=== PATIENT | female | born 1990 | race African-American/Black ===

== ENCOUNTER 2019-03-31 16:18 | Emergency (ER) | payer OTHER ==
[2019-03-31] MEDS ORDERED: ASPIRIN 81 MG TABLET, CHEWABLE PO ONE ×2 (17:13→19:30)
--- NOTE | 2019-03-31 17:19 | ER Document Report ---
ED Medical Screen (RME) - General Chief Complaint: Chest Pain Stated Complaint: CHEST PAIN,ELEVATED BLOOD PRESSURE Time Seen by Provider: 03/31/19 17:11 Primary Care Provider: DERICK ROSALES MD [Primary Care Provider] - Follow up as needed Mode of Arrival: Ambulatory Information source: Patient Notes: 28-year-old female presented to ED for complaint of chest pain since 445 this morning that is been intermittent all day. She went to the primary care after school to get this checked out and they did not have room to see her so they sent her to an urgent care the urgent care took her blood pressure and told to go to the emergency room while in the emergency room she stated that she been having chest pain since 445 this morning. She states the chest pain is better and it has been intermittent all day. She states the pain has not radiated at all during the day. The pain is just to the left of the center of her chest. 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 I have greeted and performed a rapid initial assessment of this patient. A comprehensive ED assessment and evaluation of the patient, analysis of test results and completion of medical decision making process will be conducted by an additional ED providers. - Related Data Allergies/Adverse Reactions: No Known Allergies Allergy (Verified 03/31/19 17:12) Physical Exam - Vital signs Vitals: Temp Pulse Resp BP Pulse Ox 98.5 F 84 18 146/102 H 99 03/31/19 17:07 03/31/19 17:07 03/31/19 17:07 03/31/19 17:07 03/31/19 17:07 Course - Vital Signs Vital signs: Temp Pulse Resp BP Pulse Ox 98.5 F 84 18 146/102 H 99 03/31/19 17:07 03/31/19 17:07 03/31/19 17:07 03/31/19 17:07 03/31/19 17:07 Doctor's Discharge - Discharge Referrals: DERICK ROSALES MD [Primary Care Provider] - Follow up as needed
--- NOTE | 2019-03-31 17:40 | RADIOLOGY REPORT (SQ) ---
EXAM DESCRIPTION: CHEST 2 VIEWS COMPLETED DATE/TIME: 03/31/2019 5:33 pm REASON FOR STUDY: Chest pain COMPARISON: None. EXAM PARAMETERS: NUMBER OF VIEWS: two views TECHNIQUE: Digital Frontal and Lateral radiographic views of the chest acquired. RADIATION DOSE: NA LIMITATIONS: none FINDINGS: LUNGS AND PLEURA: No opacities, masses or pneumothorax. No pleural effusion. MEDIASTINUM AND HILAR STRUCTURES: No masses or contour abnormalities. HEART AND VASCULAR STRUCTURES: Heart normal size. No evidence for failure. BONES: No acute findings. HARDWARE: None in the chest. OTHER: No other significant finding. IMPRESSION: NO ACUTE RADIOGRAPHIC FINDING IN THE CHEST. TECHNICAL DOCUMENTATION: JOB ID: [id number] [employer]- All Rights Reserved Reading location - IP/workstation name: [email or web address]
[2019-03-31 19:22] LABS: ABSOLUTE BASOPHILS # (AUTO) 0.1 10^3/uL (0.0-0.2); ABSOLUTE EOSINOPHILS # (AUTO) 0.1 10^3/uL (0.0-0.6); ABSOLUTE LYMPHOCYTES (AUTO) 2.2 10^3/uL (0.5-4.7); ABSOLUTE MONOCYTES (AUTO) 1.1 10^3/uL (0.1-1.4); ABSOLUTE NEUT (AUTO) 7.1 10^3/uL (1.7-8.2); BASOPHILS % (AUTO) 0.6 % (0-2); EOSINOPHILS % (AUTO) 0.8 % (0-6); HEMATOCRIT 39.5 % (36.0-47.0); HEMOGLOBIN 13.1 g/dL (12.0-15.5); LYMPHOCYTES % (AUTO) 20.9 % (13-45); MEAN CORPUSCULAR HGB CONC 33.3 g/dL (32.0-36.0); MEAN CORPUSCULAR VOLUME 87 fl (80-97); MONOCYTES % (AUTO) 10.2 % (3-13); PLATELET COUNT 402 10^3/uL (150-450); RED BLOOD COUNT 4.52 10^6/uL (3.72-5.28); RED CELL DISTRIBUTION WIDTH 13.3 % (11.5-14.0); SEGMENTED NEUTROPHILS % (AUTO) 67.5 % (42-78); TOTAL CELLS COUNTED % (AUTO) 100 %; WHITE BLOOD COUNT 10.6 10^3/uL (4.0-10.5)
[2019-03-31 19:41] LABS: ALBUMIN 4.5 g/dL (3.5-5.0); ALKALINE PHOSPHATASE 70 U/L (38-126); ANION GAP 10 (5-19); ASPARTATE AMINO TRANSFERASE 27 U/L (14-36); BILIRUBIN,TOTAL 0.4 mg/dL (0.2-1.3); BLOOD UREA NITROGEN 12 mg/dL (7-20); CALCIUM 9.6 mg/dL (8.4-10.2); CARBON DIOXIDE 28 mmol/L (22-30); CHLORIDE 98 mmol/L (98-107); GLUCOSE 87 mg/dL (75-110); POTASSIUM 3.7 mmol/L (3.6-5.0); TOTAL PROTEIN 8.2 g/dL (6.3-8.2)
--- NOTE | 2019-03-31 21:10 | ER Document Report ---
ED General - General Chief Complaint: Chest Pain Stated Complaint: CHEST PAIN,ELEVATED BLOOD PRESSURE Time Seen by Provider: 03/31/19 17:11 Mode of Arrival: Ambulatory Notes: Patient is a 28-year-old female that comes emergency department for chief complaint of chest pain and elevated blood pressure reading. She states she woke up at about 5 AM this morning with a mild discomfort in the left side of her chest, she points to her left sternal border between the third and fourth rib spaces. She states that intermittently she felt discomfort all day until this afternoon and she has not felt anything since about 3 PM. Patient has had a mild cough for the past 3 days. She denies shortness of breath, dizziness, na usea or vomiting. She states she is seen by urgent care and she was told that her blood pressure was elevated in the 150s so she was sent to the emergency department. Patient states she is medicated for hypertension, she denies smoking, alcohol, recreational drugs. She denies any other diagnosed medical history. LMP 2 weeks ago. She denies any family history of cardiac disease, family at bedside and denies any history especially early cardiac disease. - Related Data Allergies/Adverse Reactions: No Known Allergies Allergy (Verified 03/31/19 17:12) Past Medical History - General Information source: Patient - Social History Smoking Status: Never Smoker Frequency of alcohol use: Rare Lives with: Family Family History: Reviewed & Not Pertinent Patient has suicidal ideation: No Patient has homicidal ideation: No Surgical Hx: Negative - Immunizations Immunizations up to date: Yes Hx Diphtheria, Pertussis, Tetanus Vaccination: Yes Review of Systems - Review of Systems Constitutional: No symptoms reported EENT: No symptoms reported Cardiovascular: See HPI Respiratory: See HPI Gastrointestinal: No symptoms reported Genitourinary: No symptoms reported Female Genitourinary: No symptoms reported Musculoskeletal: See HPI Skin: No symptoms reported Hematologic/Lymphatic: No symptoms reported Neurological/Psychological: No symptoms reported Physical Exam - Vital signs Vitals: Temp Pulse Resp BP Pulse Ox 98.5 F 84 18 146/102 H 99 03/31/19 17:07 03/31/19 17:07 03/31/19 17:07 03/31/19 17:07 03/31/19 17:07 - Notes Notes: GENERAL: Alert, interacts well. No acute distress. HEAD: Normocephalic, atraumatic. EYES: Pupils equal, round, and reactive to light. Extraocular movements intact. ENT: Oral mucosa moist, tongue midline. Oropharynx unremarkable. Airway patent. LUNGS: Clear to auscultation bilaterally, no wheezes, rales, or rhonchi. No respiratory distress. HEART: Regular rate and rhythm. No murmur ABDOMEN: Soft, non-tender. Non-distended. Bowel sounds present in all 4 quadrants. GENITOURINARY: Deferred EXTREMITIES: Moves all 4 extremities spontaneously. No edema, normal radial and dorsalis pedis pulses bilaterally. No cyanosis. BACK: no cervical, thoracic, lumbar midline tenderness. No saddle anesthesia, normal distal neurovascular exam. Moves all extremities in full range of motion. NEUROLOGICAL: Alert and oriented x3. Normal speech. Cranial nerves II through XII grossly intact. PSYCH: Normal affect, normal mood. SKIN: Warm, dry, normal turgor. No rashes or lesions noted. Course - Re-evaluation Re-evalutation: Patient has not had chest pain for hours. Symptoms atypical and very spe cifically between the ribs and the left anterior chest wall per patient's indication. No fever, no IV drug abuse, no recreational drugs reported, no family history, no risk factors reported. In addition to this patient has been recovering from a mild cough. Work-up from triage reviewed including chest x- ray, EKG, CBC, chemistry, troponin. These are all normal. I recommended a test for the patient but she declined, states she wants to leave, assures me that she is not . Patient has a heart score of 0. Very low suspicion of any acute intrathoracic etiology. No lower extremity swelling, tachycardia, shortness of breath, or current symptoms. Patient will be discharged with recommendations, I did discuss her blood pressure, discussed primary care follow-up and return precautions. Patient states understanding and agreement. Stable at time of discharge. - Vital Signs Vital signs: Temp Pulse Resp BP Pulse Ox 98.5 F 84 12 130/95 H 98 03/31/19 17:07 03/31/19 17:07 03/31/19 21:01 03/31/19 21:00 03/31/19 21:01 - Laboratory Result Diagrams: 03/31/19 18:59 03/31/19 18:59 Laboratory results interpreted by me: 03/31/19 03/31/19 18:59 18:59 WBC 10.6 H Sodium 136.3 L - EKG Interpretation by Me Additional EKG results interpreted by me: EKG shows sinus rhythm at a rate of 94, QTC of 416, normal axis. No T wave inversions or ST segment changes in consecutive leads. SD interval of 144 Discharge - Discharge Clinical Impression: Chest pain Qualifiers: Chest pain type: unspecified Qualified Code(s): R07.9 - Chest pain, unspecified Condition: Stable Disposition: HOME, SELF-CARE Additional Instructions: Your work-up does not show any concerning findings today. Based on your recent cough and intermittent pain with the location of the pain I suspect this is pain in the cartilage between your ribs, mild costochondritis. I do recommend the prescribed anti-inflammatory for the next several days. Stay hydrated and rest. Symptoms should simply resolve with time. Follow-up with primary care for additional evaluation and management. Return for any concerning symptoms including returned/severe pain, difficulty breathing, fever, vomiting, passing out, or any other concerning symptoms. Prescriptions: Naproxen 375 mg PO BID PRN #14 tablet.dr LYLE Reason: Forms: Return to Work
[2019-03-31 21:14] VITALS: BP 130/95
--- NOTE | 2019-03-31 21:51 | EKG REPORT ---
SEVERITY:- BORDERLINE ECG - SINUS RHYTHM BORDERLINE T ABNORMALITIES, DIFFUSE LEADS : Confirmed by: Coco Gamino MD 31-Mar-2019 21:51:15
== END 2019-03-31 21:21 | disposition home or self-care (01) ==
LOC: ER 16:18
DX: R07.9 Chest pain, unspecified (principal); R03.0 Elevated blood-pressure reading, without diagnosis of hypertension
CPT/HCPCS: 36415; 71046; 80053; 84484; 85025; 93005; 93010; 99285